=== PATIENT | female | born 1940 | race Caucasian/White ===

== ENCOUNTER 2021-03-20 13:07 | Emergency (ER) | payer MEDICARE, OTHER ==
[2021-03-20 14:34] LABS: CORONAVIRUS 2019 SARS-COV-2 NEGATIVE (NEGATIVE); INFLUENZA A NAA NEGATIVE (NEGATIVE)
[2021-03-20 14:55] LABS: BASOPHIL 0.2 % (0-2); EOSINOPHIL 0.7 % (0-7); HCT 39.5 % (37.0-47.0); HGB 12.7 g/dl (12.5-16.0); LYMPHOCYTE 2.1 % (15-48); MCH 31.7 pg (25.0-31.0); MCHC 32.2 g/dL (32.0-36.0); MCV 98.5 fL (78.0-100.0); NEUTROPHIL 92.4 % (41-80); NRBC 0; PLT 238 K/uL (150-400); RBC 4.01 M/uL (4.20-5.40); RDW 13.7 % (11.5-14.0); WBC 11.2 K/uL (4.0-10.5)
[2021-03-20 15:10] LABS: ALBUMIN 3.1 g/dL (3.4-5.0); BILIRUBIN - TOTAL 0.5 mg/dL (0.2-1.0); BUN/CREAT RATIO (CALC) 20.2 RATIO; CREATININE 0.89 mg/dL (0.51-0.95); GLOBULIN (CALCULATION) 3.4 g/dL; POTASSIUM 3.8 mmol/L (3.5-5.1); TOTAL PROTEIN 6.5 g/dL (6.4-8.2)
[2021-03-20 17:07] LABS: BILIRUBIN NEGATIVE (NEGATIVE); BLOOD NEGATIVE Ery/uL (NEGATIVE); CLARITY CLEAR (CLEAR); COLOR YELLOW (YELLOW); GLUCOSE (U) NORMAL (NORMAL); LEUKOCYTES 1+ Leu/uL (NEGATIVE); NITRITE NEGATIVE (NEGATIVE); PROTEIN TRACE (LOW) mg/dL (NEGATIVE); UROBILINOGEN 0.2 mg/dL (0.2-1.0)
[2021-03-20 17:22] LABS: BACTERIA 1+
[2021-03-20] MEDS ORDERED: AUGMENTIN 875-1 EACH PO (18:51)
[2021-03-20] MEDS ORDERED: PREDNISONE 20MG20 MG PO (18:51)
[2021-03-20] MEDS ORDERED: VENTOLIN HFA IN18 GM INH (18:51)
== END 2021-03-20 19:17 | disposition home or self-care (01) ==
LOC: FER 13:07
PROVIDERS: Internal Medicine
DX: J18.9 Pneumonia, unspecified organism (principal); E86.0 Dehydration; N39.0 Urinary tract infection, site not specified; J98.11 Atelectasis; Z20.822 Contact with and (suspected) exposure to COVID-19; Z79.899 Other long term (current) drug therapy
CPT/HCPCS: 36415; 71045; 80053; 81001; 84484; 85025; 93005; 94664; J0696; J2930; J7040; U0002